=== PATIENT | female | born 1970 | race Caucasian/White ===

== ENCOUNTER 2016-12-04 22:36 | Emergency (ER) | payer MEDICAID, OTHER ==
[~2016-12-04] VITALS: Ht 172.7 cm; Wt 95.3 kg
[2016-12-04 22:41] VITALS: BP 142/72
--- NOTE | 2016-12-04 22:53 | NUR ---
PT IS A 46Y/F PRESENT TO ER C/O OF ABD PAIN AND FEEL HER ABD SWOLLEN, WITH NAUSEA. C/O SHARP PAIN 10/10 IN SCALE. HX APPY AND C-SECTIONS X3.
--- NOTE | 2016-12-04 23:20 | NUR ---
Dr. Blanco evaluating patient at bedside.
--- NOTE | 2016-12-04 23:39 | NUR ---
TAKEN FOR CT SCAN
--- NOTE | 2016-12-04 23:48 | NUR ---
PT RETURN FROM CT
[2016-12-05 01:02] VITALS: BP 139/71
--- NOTE | 2016-12-05 01:03 | NUR ---
Patient discharged with v/s stable. Written and verbal after care instructions given and explained BY DR HOUSTON. Patient verbalized understanding. Ambulatory with steady gait. All questions addressed prior to discharge. Advised to follow up with PMD.
== END 2016-12-05 01:03 | disposition home or self-care (01) ==
LOC: MED 22:36
PROC: BW21ZZZ Computerized Tomography (CT Scan) of Abdomen and Pelvis (ICD-10-PCS; principal; 2016-12-04)
DX: K58.9 Irritable bowel syndrome, unspecified (principal); R03.0 Elevated blood-pressure reading, without diagnosis of hypertension; Z32.02 Encounter for pregnancy test, result negative